=== PATIENT | male | born 1945 | race Caucasian/White ===

== ENCOUNTER → 2021-05-16 11:40 | Outpatient (BNVA) | payer MEDICARE, SELFPAY | PROVIDERS: Visit Provider Internal Medicine | DX: M48.061 Spinal stenosis, lumbar region without neurogenic claudication (principal); M54.16 Radiculopathy, lumbar region | CPT/HCPCS: 99202 ==

== ENCOUNTER 2021-05-29 12:25 | Emergency (ER) | payer OTHER, MEDICARE, SELFPAY ==
--- NOTE | ~2021-05-29 | XR_ITS ---
EXAMINATION: XR LUMBOSACRAL SPINE CLINICAL INFORMATION: Back pain COMPARISON: None TECHNIQUE: Three views of the lumbosacral spine. FINDINGS: Bone alignment is normal. No fracture or dislocation is seen. There is degenerative disc disease from L3-L4 to L5-S1. There is degenerative spondylosis. There are large bridging osteophytes at L1-L2 and L2-L3. There is lower lumbar spine facet arthritis. There is evidence of atherosclerotic disease. XR/XR lumbar spine 2-3V IMPRESSION: Severe degenerative changes. No fracture seen.
[2021-05-29 12:34] VITALS: BMI 38.7
[2021-05-29 12:36] VITALS: BP 150/72; PULSE 79; RESP 18; TEMP 36.8; O2SAT 95
--- NOTE | 2021-05-29 12:45 | ED.BACK ---
HPI - Back Pain/Injury General Chief Complaint: Back Pain/Injury Stated Complaint: lower back pain Time Seen by Provider: 05/29/21 12:43 Source: patient and EMS Mode of arrival: EMS Limitations: no limitations History of Present Illness HPI Narrative: 75-year-old male with history of 20+ years of chronic back pain. Patient is taking oxycodone at home p.r.n. if needed for pain, patient reported that oxycodone is not given enough relief pain, no recent fall, no recent new injury to the back, reportedly patient had multiple MRIs and studies on the lumbar spine, patient is scheduled to have epidural pain management in 2 weeks. Came in today for severe back pain that he could not tolerate and did not get relief with the oxycodone with it. Related Data Home Medications Medication Instructions Recorded Confirmed albuterol sulfate 2.5 mg INHALATION Q4H PRN 05/16/21 amlodipine 5 mg tablet 5 mg PO DAILY 05/16/21 apixaban 5 mg tablet (Eliquis) 5 mg PO BID 05/16/21 aspirin 81 mg tablet,delayed 81 mg PO DAILY 05/16/21 release (Adult Low Dose Aspirin) budesonide-formoterol HFA 160 2 puff INHALATION BID 05/16/21 mcg-4.5 mcg/actuation aerosol inhaler (Symbicort) docusate sodium 100 mg capsule 100 mg PO BID 05/16/21 duloxetine 30 mg capsule,delayed 30 mg PO DAILY 05/16/21 release ezetimibe 10 mg tablet 10 mg PO DAILY 05/16/21 furosemide 40 mg tablet 40 mg PO DAILY 05/16/21 guaifenesin 200 mg tablet 200 mg PO QID 05/16/21 lisinopril 20 mg tablet 20 mg PO DAILY 05/16/21 metoprolol tartrate 25 mg tablet 25 mg PO BID 05/16/21 oxycodone-acetaminophen 5 mg-325 1 tab PO TID PRN 05/16/21 mg tablet tiotropium bromide 2.5 2 puff INHALATION DAILY 05/16/21 mcg/actuation mist for inhalation (Spiriva Respimat) Allergies Allergy/AdvReac Type Severity Reaction Status Date / Time No Known Allergies Allergy Verified 05/16/21 12:01 Review of Systems Review of Systems: All other systems are reviewed and are negative Constitutional: Reports as per HPI and Reports no additional constitutional complaints Eyes: Reports as per HPI and Reports no additional eye complaints Reports system reviewed and no additional complaints, except as documented Cardiovascular: Reports as per HPI and Reports no additional cardiovascular complaints Respiratory: Reports as per HPI and Reports no additional respiratory complaints Gastrointestinal: Reports as per HPI and Reports no additional gastrointestinal complaints Genitourinary: Reports no additional female genitourinary complaints Musculoskeletal: Reports no additional musculoskeletal complaints Skin/Breast: Reports system reviewed and no additional complaints, except as docu Psychiatric: Reports no additional psychiatric complaints Endocrine: Reports no additional endocrine complaints Hematologic/Lymphatic: Reports no additional hematologic/lymphatic complaints Allergic/Immunologic: Reports no additional allergic/immunologic complaints Reports system reviewed and no additional complaints, except as documented and Reports Abnormal speech present [facility] Past Medical History Medical History CAD (coronary artery disease) Congestive heart failure COPD (chronic obstructive pulmonary disease) Depression Lumbar radicular pain Paroxysmal A-fib Spinal stenosis at L4-L5 level Social History Social History Alcohol intake: unknown Patient Tobacco Use Status: Tobacco use Unknown Use of substances other than those prescribed or required for medical reasons: Unknown Advance Directives: No Advance Directives Information Provided: No Physical Exam Vital Signs: Vital Signs: Last Vital Signs Temp 98.2 F 05/29/21 12:36 Pulse 79 05/29/21 12:36 Resp 18 05/29/21 12:36 BP 150/72 H 05/29/21 12:36 Pulse Ox 95 05/29/21 12:36 Body Mass Index 38.7 Vital signs have been reviewed as appeared to be correct. Blood pressure normal. Heart rate normal. Respiration rate normal. Temperature normal. Oxygen saturation normal. Appearance: Alert. Oriented X3. No acute distress. Head: Normal external exam. Normocephalic. Atraumatic. No Locke signs noted. No raccoon eyes noted Eyes: PERRLA. EOMI. Conjunctiva and sclera normal. Eyelids normal. ENT: TM's Normal. Pharynx normal. Uvula midline. Moist mucous membranes. No trismus noted. No drooling noted. No muffled voice noted. Neck: Normal inspection. Neck supple. FROM. No adenopathy. Thyroid Normal. No meningeal signs. No neck mass noted. CVS: Normal heart rate and rhythm. Heart sound normal. No murmurs noted. Pulses normal throughout. Respiratory: No respiratory distress. Painless inspiration. Breath sounds normal. No wheezes/rales/rhonchi noted. Chest nontender. No accessory muscle usage noted or decreased air movement noted. Abdomen: Soft and nontender. Bowel sounds normal in all 4 quadrants. No distention noted. No organomegaly noted. No visible injury noted. Back: No CVA tenderness. Full range of motion noted. No step-off, no deformity. Skin: Skin warm and dry. Normal skin color. Normal skin turgor. No rashes/lesions/lacerations noted. Extremities: No lower extremity edema. Extremities exhibit normal range of motion. Extremities nontender. Neuro: Oriented X 3. Cranial nerve exam: II-XII are grossly intact No motor deficit. No sensory deficit. Reflexes normal. Course Course Course Narrative: Assessment and plan. Acute on chronic low back pain of a 75-year-old male, patient use oxycodone at home for pain control, no new injuries, unremarkable number spine x-ray, patient received Dilaudid/Toradol IM improving patient's pain. And discussed with the patient to follow-up with pain management clinic. MDM - Back Pain/Injury Medical Records Attestation: I reviewed the patient's medical records. Imaging Data Lumbar spine x-ray: Radiologist's impression: Severe degenerative changes. No fracture seen. Discharge Plan Discharge Clinical Impression: Acute exacerbation of chronic low back pain Patient Disposition: Home, Self-Care Instructions: Chronic Pain (ED) Additional Instructions: Follow-up with your PCP/pain management clinic appointment as scheduled. Use pain medication home as instructed.
[2021-05-29] MEDS: HYDROmorphone HCl 2 MG/ML VIAL IM (12:58)
[2021-05-29] MEDS: Ketorolac Tromethamine 60 MG/2 ML VIAL IM (12:58)
== END 2021-05-29 15:02 | disposition home or self-care (01) ==
LOC: HO.ED 13:05
PROVIDERS: Emergency Provider Emergency Medicine
DX: G89.29 Other chronic pain (principal); M54.50 Low back pain, unspecified; I48.0 Paroxysmal atrial fibrillation; F17.200 Nicotine dependence, unspecified, uncomplicated; Z79.891 Long term (current) use of opiate analgesic
CPT/HCPCS: 72100; 96372; 99284; J1170; J1885

== ENCOUNTER 2021-06-15 06:33 | Outpatient (REF) | payer MEDICARE, SELFPAY ==
--- NOTE | ~2021-06-15 | FL_ITS ---
EXAMINATION: XR FLUOROSCOPY WITH IMAGES CLINICAL INFORMATION: Spinal stenosis COMPARISON: None. TECHNIQUE: Fluoroscopy performed by Dr. Mason Fluoroscopy time: 0.3 minutes DAP: 2.5 Gycm2 Images: 1 FINDINGS: Image demonstrates needle placement and contrast injection over the lower lumbar spine. FL/FL guidance in treatment room IMPRESSION: Fluoroscopy guidance for pain management procedure.
== END 2021-06-15 06:34 | disposition home or self-care (01) ==
LOC: HO.RADIR 06:33
PROVIDERS: Visit Provider Internal Medicine
DX: M48.061 Spinal stenosis, lumbar region without neurogenic claudication (principal); M54.16 Radiculopathy, lumbar region
CPT/HCPCS: 62323; J1040; Q9967

== ENCOUNTER → 2021-07-08 10:40 | Outpatient (BNVA) | payer MEDICARE, SELFPAY | PROVIDERS: PCP Internal Medicine; Visit Provider Internal Medicine | DX: Z13.89 Encounter for screening for other disorder (principal) | CPT/HCPCS: 99212 ==

== ENCOUNTER 2021-07-08 11:22 | Inpatient (IN) | payer OTHER, SELFPAY ==
[2021-07-08] VITALS (9 sets, daily range): BP systolic 136–153; BP diastolic 20–98; PULSE 81–98; RESP 18–23; TEMP 36.1–36.8; O2SAT 91–95; BMI 38.4
--- NOTE | ~2021-07-08 | XR_ITS ---
EXAMINATION: XR CHEST CLINICAL INFORMATION: Shortness of breath COMPARISON: None TECHNIQUE: AP portable view of the chest was obtained. FINDINGS: The cardiopericardial silhouette is enlarged. There appears to be some mild basilar atelectasis with no definite confluent pneumonitis identified. Prominent pericardial fat pads are seen. There is some vascular prominence present without definite interstitial or airspace edema. No pneumothorax or significant pleural effusion. XR/XR chest 1V IMPRESSION: Cardiomegaly without pulmonary edema. No significant acute parenchymal disease appreciated.
--- NOTE | 2021-07-08 12:28 | ECG_ITS ---
Test Reason : upper resp Blood Pressure : / mmHG Vent. Rate : 081 BPM Atrial Rate : 000 BPM P-R Int : 000 ms QRS Dur : 090 ms QT Int : 362 ms P-R-T Axes : 000 058 105 degrees QTc Int : 420 ms Atrial fibrillation Nonspecific ST and T wave abnormality Abnormal ECG No previous ECGs available Referred By: José Manuel Chi Electronically Signed By:Cortes Mejias
[2021-07-08] MEDS: Albuterol/Iprat 2.5/0.5MG 3 ML AMPUL.NEB INHALE ×3 (12:47→19:47)
--- NOTE | 2021-07-08 12:53 | ED_ITS ---
HPI - General Adult General Chief complaint: Upper Respiratory Symptoms Stated complaint: diff breathing Time Seen by Provider: 07/08/21 11:53 Source: patient and family History of Present Illness HPI narrative: This is a 75-year-old male with a history of COPD, as well as paroxysmal atrial fibrillation, congestive heart failure, who has had worsening shortness of breath over the last 4-5 days. The patient has noted lower extremity edema. He is on oxygen at home but feels that he cannot exert himself at all without getting very short of breath. He has had a cough productive of some beige phlegm. He denies any fever. He denies any chest pain. Was seen last week for back pain was put on prednisone for 5 days for his back which seemed to improve his breathing. He has not been on prednisone for COPD. He is on furosemide. He is anticoagulated Related Data Home Medications Medication Instructions Recorded Confirmed albuterol sulfate 2.5 mg INHALATION Q4H PRN 05/16/21 07/08/21 amlodipine 5 mg tablet 5 mg PO DAILY 05/16/21 07/08/21 apixaban 5 mg tablet (Eliquis) 5 mg PO BID 05/16/21 07/08/21 aspirin 81 mg tablet,delayed 81 mg PO DAILY 05/16/21 07/08/21 release (Adult Low Dose Aspirin) budesonide-formoterol HFA 160 2 puff INHALATION BID 05/16/21 07/08/21 mcg-4.5 mcg/actuation aerosol inhaler (Symbicort) docusate sodium 100 mg capsule 100 mg PO BID 05/16/21 07/08/21 duloxetine 30 mg capsule,delayed 30 mg PO DAILY 05/16/21 07/08/21 release ezetimibe 10 mg tablet 10 mg PO DAILY 05/16/21 07/08/21 guaifenesin 200 mg tablet 200 mg PO QID 05/16/21 07/08/21 lisinopril 20 mg tablet 20 mg PO DAILY 05/16/21 07/08/21 metoprolol tartrate 25 mg tablet 25 mg PO BID 05/16/21 07/08/21 oxycodone-acetaminophen 5 mg-325 1 tab PO TID PRN 05/16/21 07/08/21 mg tablet tiotropium bromide 2.5 2 puff INHALATION DAILY 05/16/21 07/08/21 mcg/actuation mist for inhalation (Spiriva Respimat) Allergies Allergy/AdvReac Type Severity Reaction Status Date / Time No Known Allergies Allergy Verified 07/08/21 10:53 Review of Systems Review of Systems: Yes all other systems are reviewed and are negative Constitutional: Constitutional: Reports as per HPI and Denies fever(s) Eyes: Eyes: Reports as per HPI and Reports no additional eye complaints ENT: Reports system reviewed and no additional complaints, except as documented, Reports as per HPI, Denies nasal congestion, Denies nasal discharge and Denies sore throat Cardiovascular: Cardiovascular: Reports as per HPI, Denies chest pain and Reports dyspnea Respiratory: Respiratory: Reports as per HPI, Reports cough and Reports dyspnea Gastrointestinal: Gastrointestinal: Reports as per HPI, Denies abdominal pain, Denies diarrhea and Denies vomiting Genitourinary: Genitourinary: Reports as per HPI, Denies hematuria, Denies dysuria and Denies urinary frequency Musculoskeletal: Musculoskeletal: Reports no additional musculoskeletal complaints and Denies numbness Integumentary/Breasts: Skin/Breast: Reports as per HPI and Denies rash Comments: Lower extremity swelling/edema Neurologic: Reports as per HPI, Denies focal weakness, Denies numbness and Denies Sensory deficit (Neuro) Psychiatric: Psychiatric: Reports no additional psychiatric complaints and Reports as per HPI Endocrine: Endocrine: Reports no additional endocrine complaints and Reports as per HPI Hematologic/Lymphatic: Hematologic/Lymphatic: Reports no additional hematologic/lymphatic complaints, Reports as per HPI and Reports other (No peripheral edema) [facility] Past Medical History Medical History CAD (coronary artery disease) Congestive heart failure COPD (chronic obstructive pulmonary disease) Depression Lumbar radicular pain Paroxysmal A-fib Spinal stenosis at L4-L5 level Social History Social History Alcohol intake: never Patient Tobacco Use Status: Current everyday Tobacco user Use of substances other than those prescribed or required for medical reasons: No Advance Directives: No Advance Directives Information Provided: Yes Physical Exam Vital Signs: Vital Signs: Last Vital Signs Temp 98.3 F 07/08/21 13:26 Pulse 90 07/08/21 13:26 Resp 23 H 07/08/21 13:26 BP 153/20 H 07/08/21 13:26 Pulse Ox 95 07/08/21 13:26 Oxygen Flow Rate 2 07/08/21 11:31 BMI result Body Mass Index 38.4 Const: General: cooperative, no acute distress and alert Orientation/consciousness: patient oriented x3 HENMT: Head: Yes normal to inspection Eyes: General: appearance normal, both eyes and all related structures Eyelids: Yes eyelids normal Conjunctivae: conjunctivae normal Pupils: Equal, round and reactive pupils present Neck: Neck: Yes normal visual inspection and Yes supple Chest: Chest palpation & inspection: normal inspection of the chest Resp: Effort & Inspection: normal respiratory effort Auscultation: clear to auscultation bilaterally Cardio: Rhythm: abnormal rhythm (Irregular irregular) Heart sounds: no gallops, no murmurs and no rubs GI: Other: Moderate obesity Palpation (GI): Soft to palpation, nontender and Other GI palpation findings present (Non-distended) Auscultation: normal bowel sounds Skin: General skin exam: no rashes or lesions noted Neuro: General: patient oriented x3, no focal motor deficits and CN's II-XI intact bilaterally Cranial nerves: Yes Equal, round and reactive pupils present Cognition (Neuro): normal cognition Motor exam (neuro): 5/5 motor strength present throughout Sensory Exam: No Sensory deficit (Neuro) Extrem: General: Yes normal to inspection, Yes no pedal edema and Yes edema (2+ pitting edema bilaterally to the ankles) Psych: Appearance: grossly normal Affect: normal affect Medical Decision Making MDM Narrative Medical decision making narrative: Patient with COPD, CHF, paroxysmal atrial fibrillation. Patient has had worsened shortness of breath, with minimal exertion. Patient sounded very wheezy, consider cardiac asthma, on initial evaluation. Patient did have 2+ pitting edema. Patient was given Lasix 80 mg IV, nitroglycerin paste. Patient is on oxygen at home 2 L nasal cannula but given his worsening dyspnea, I believe admission for diuresis as well as possible Cardiology, and pulmonary consultation is warranted. Critical care time for this life-threatening illness exclusive of all other billable procedures was approximately 35 minutes including initial evaluation of the patient, ordering tests, x-ray interpretation, EKG interpretation, medical consultation, documentation, reevaluation. Lab Data Result diagrams: 07/08/21 13:09 07/08/21 13:09 Labs: Lab Results 07/08/21 07/08/21 07/08/21 Range/Units 13:09 13:09 13:09 WBC 10.1 (4.8-10.8) X10*3/uL RBC 4.89 (4.60-5.80) X10*6/uL Hgb 15.0 (14.0-18.0) g/dl Hct 47.1 (42.0-52.0) % MCV 96.3 (80.0-98.0) fL MCH 30.7 (27.0-33.0) pg MCHC 31.8 (31.0-36.0) g/dl RDW 14.4 (11.0-16.0) % Plt Count 156 L (160-400) X10*3/uL MPV 9.7 (9.4-12.4) fL Immature Gran % (Auto) 0.9 H (0.0-0.4) % Neut % (Auto) 77.6 H (45-73) % Lymph % (Auto) 12.8 L (20-40) % Crawford % (Auto) 6.3 (2-11) % Eos % (Auto) 2.0 (0-4) % Baso % (Auto) 0.4 (0-2) % Lymph # (Auto) 1.3 (1.2-4.9) X10*3/uL Crawford # (Auto) 0.6 (0.1-1.2) X10*3/uL Eos # (Auto) 0.2 (0.0-0.4) X10*3/uL Baso # (Auto) 0.0 (0.0-0.2) X10*3/uL Abs Immat Gran (auto) 0.09 H (0.00-0.03) X10*3/uL Absolute Neuts (auto) 7.9 (2.0-8.3) x10*3/uL Absolute Nucleated RBC 0.000 (0.0-0.012) X10*3/uL Nucleated RBC % (auto) 0.0 (0.0-0.2) /100WBC Sodium 140 (135-145) mmol/L Potassium 4.8 (3.3-5.1) mmol/L Chloride 103 (96-108) mmol/L Carbon Dioxide 30 H (22-29) mmol/L Anion Gap 12 (12-20) BUN 20 H (9-16) mg/dL Creatinine 1.08 (0.5-1.4) mg/dL Estim Creat Clear Calc 73.7 Estimated GFR > 60 Random Glucose 153 H (60-115) mg/dL Calcium 9.1 (8.4-10.2) mg/dL Magnesium 2.2 (1.6-2.6) mg/dL Total Bilirubin 0.6 (0.0-1.0) mg/dL AST 40 H (5-37) U/L ALT 147 H (0-40) U/L Alkaline Phosphatase 119 H (39-117) U/L B-Natriuretic Peptide (<100) pg/mL Total Protein 5.9 L (6.5-8.0) g/dL Albumin 3.5 (3.5-5.0) g/dL 07/08/21 Range/Units 13:09 WBC (4.8-10.8) X10*3/uL RBC (4.60-5.80) X10*6/uL Hgb (14.0-18.0) g/dl Hct (42.0-52.0) % MCV (80.0-98.0) fL MCH (27.0-33.0) pg MCHC (31.0-36.0) g/dl RDW (11.0-16.0) % Plt Count (160-400) X10*3/uL MPV (9.4-12.4) fL Immature Gran % (Auto) (0.0-0.4) % Neut % (Auto) (45-73) % Lymph % (Auto) (20-40) % Crawford % (Auto) (2-11) % Eos % (Auto) (0-4) % Baso % (Auto) (0-2) % Lymph # (Auto) (1.2-4.9) X10*3/uL Crawford # (Auto) (0.1-1.2) X10*3/uL Eos # (Auto) (0.0-0.4) X10*3/uL Baso # (Auto) (0.0-0.2) X10*3/uL Abs Immat Gran (auto) (0.00-0.03) X10*3/uL Absolute Neuts (auto) (2.0-8.3) x10*3/uL Absolute Nucleated RBC (0.0-0.012) X10*3/uL Nucleated RBC % (auto) (0.0-0.2) /100WBC Sodium (135-145) mmol/L Potassium (3.3-5.1) mmol/L Chloride (96-108) mmol/L Carbon Dioxide (22-29) mmol/L Anion Gap (12-20) BUN (9-16) mg/dL Creatinine (0.5-1.4) mg/dL Estim Creat Clear Calc Estimated GFR Random Glucose (60-115) mg/dL Calcium (8.4-10.2) mg/dL Magnesium (1.6-2.6) mg/dL Total Bilirubin (0.0-1.0) mg/dL AST (5-37) U/L ALT (0-40) U/L Alkaline Phosphatase (39-117) U/L B-Natriuretic Peptide 533 H (<100) pg/mL Total Protein (6.5-8.0) g/dL Albumin (3.5-5.0) g/dL Imaging Data Chest x-ray: My impression: Cardiomegaly, mild vascular congestion Radiologist's impression: FINDINGS: The cardiopericardial silhouette is enlarged. There appears to be some mild basilar atelectasis with no definite confluent pneumonitis identified. Prominent pericardial fat pads are seen. There is some vascular prominence present without definite interstitial or airspace edema. No pneumothorax or significant pleural effusion. XR/XR chest 1V IMPRESSION: Cardiomegaly without pulmonary edema. ? No significant acute parenchymal disease appreciated. ECG Data Attestation: I personally reviewed and interpreted this ECG as follows: Interpretation: Atrial fibrillation with a ventricular response of 81. Normal R-wave progression. Prominent fib/flutter waves makes interpretation of ST segment somewhat difficult, but no obvious ST elevation or depression Discharge Plan Discharge Clinical Impression: CHF (congestive heart failure), COPD (chronic obstructive pulmonary disease), Atrial fibrillation Patient Disposition: Admitted As Inpatient Prescriptions: No Action Eliquis 5 mg tablet 5 mg PO BID RF: 0 amlodipine 5 mg tablet 5 mg PO DAILY RF: 0 docusate sodium 100 mg capsule 100 mg PO BID RF: 0 ezetimibe 10 mg tablet 10 mg PO DAILY RF: 0 aspirin [Adult Low Dose Aspirin] 81 mg tablet,delayed release (DR/EC) 81 mg PO DAILY RF: 0 lisinopril 20 mg tablet 20 mg PO DAILY RF: 0 metoprolol tartrate 25 mg tablet 25 mg PO BID RF: 0 guaifenesin 200 mg tablet 200 mg PO QID RF: 0 oxycodone-acetaminophen 5-325 mg tablet 1 tab PO TID PRN (Reason: Pain) RF: 0 Spiriva Respimat 2.5 mcg/actuation mist 2 puff inhalation DAILY RF: 0 budesonide-formoterol [Symbicort] 160-4.5 mcg/actuation HFA aerosol inhaler 2 puff inhalation BID RF: 0 albuterol sulfate 2.5 mg /3 mL (0.083 %) solution for nebulization 2.5 mg inhalation Q4H PRN (Reason: Wheezing) RF: 0 duloxetine 30 mg capsule,delayed release(DR/EC) 30 mg PO DAILY RF: 0
[2021-07-08] MEDS: Nitroglycerin 2 % Oint 1 GM Packet 1 INCH TRANSDERMA (13:31)
[2021-07-08] MEDS: Furosemide 100 MG/10 ML VIAL 80 MG IVPUSH (13:31)
[2021-07-08 13:49] LABS: MANUAL DIFF FLAG NO
[2021-07-08 13:50] LABS: Basophils Percent Auto 0.4 % (0-2); Eosinophils Absolute Auto 0.2 X10*3/uL (0.0-0.4); Hematocrit 47.1 % (42.0-52.0); Imm Gran Abs Auto 0.09 X10*3/uL (0.00-0.03); Imm Gran Pct Auto 0.9 % (0.0-0.4); Lymphocytes Absolute Auto 1.3 X10*3/uL (1.2-4.9); Lymphocytes Percent Auto 12.8 % (20-40); Mean Corpuscular HGB Conc 31.8 g/dl (31.0-36.0); Mean Corpuscular Hemoglobin 30.7 pg (27.0-33.0); Mean Corpuscular Volume 96.3 fL (80.0-98.0); Mean Platelet Volume 9.7 fL (9.4-12.4); Monocytes Absolute Auto 0.6 X10*3/uL (0.1-1.2); Monocytes Percent Auto 6.3 % (2-11); Neutrophils Absolute Auto 7.9 x10*3/uL (2.0-8.3); Neutrophils Percent Auto 77.6 % (45-73); Platelet Count 156 X10*3/uL (160-400); Red Blood Count 4.89 X10*6/uL (4.60-5.80); Red Cell Distribution Width 14.4 % (11.0-16.0); White Blood Count 10.1 X10*3/uL (4.8-10.8)
[2021-07-08 14:08] LABS: Magnesium 2.2 mg/dL (1.6-2.6)
[2021-07-08 14:09] LABS: Alanine Aminotransferase 147 U/L (0-40); Albumin Level 3.5 g/dL (3.5-5.0); Alkaline Phosphatase 119 U/L (39-117); Anion Gap 12 (12-20); Aspartate Amino Transferase 40 U/L (5-37); Bilirubin Total 0.6 mg/dL (0.0-1.0); Blood Urea Nitrogen 20 mg/dL (9-16); Calcium 9.1 mg/dL (8.4-10.2); Carbon Dioxide 30 mmol/L (22-29); Chloride 103 mmol/L (96-108); Creatinine Clr Calc Pharmacy 73.7; Estimated Glomerular Filt Rate > 60; Glucose Random 153 mg/dL (60-115); Potassium 4.8 mmol/L (3.3-5.1); Sodium 140 mmol/L (135-145); Total Protein 5.9 g/dL (6.5-8.0)
[2021-07-08 14:12] LABS: B Type Natriuretic Peptide 533 pg/mL (<100)
--- NOTE | 2021-07-08 14:41 | PHA.MEDREC ---
Pharmacy Consult ? Medication Reconciliation Pharmacy has completed the medication reconciliation.
--- NOTE | 2021-07-08 14:47 | PC.NURSE ---
pt voided n urinal 1200ml yellow urine.
[2021-07-08 15:48] LABS: COVID-19 Test Negative (Negative)
--- NOTE | 2021-07-08 15:56 | P.HPHOSP_ITS ---
History of Present Illness Date of Service: 07/08/21 Attending physician on admission: Jennifer Omer Chief Complaint: Shortness of breath 75-year-old gentleman past medical history significant for coronary artery disease status post stent placement 6 years ago at [facility], his tory of congestive heart failure, COPD on 2 L of home oxygen, history of paroxysmal atrial fibrillation on Eliquis presented to [facility] due to few days of worsening shortness of breath with dyspnea on exertion, orthopnea denies any chest pain complaining of frequent urination x1 week, admit compliance with home medications denies new medications, denies excessive fluid intake, patient was seen at [facility] 10 days ago due to chronic back pain and was referred to [facility], patient seen this a.m. by Dr. Gibson and received right-sided peripheral nerve stimulation, from there patient came to the emergency room due to worsening shortness of breath, in the emergency room a chest x-ray showed no infiltrate, no edema, BNP was 533 no prior labs available since patient cardiac and primary providers of from [place], patient was treated in the emergency room with DuoNeb, nitro paste, and IV Lasix, patient does not feel any relief in his symptoms therefore being admitted for continued treatment and evaluation of worsening shortness of breath. Review of Systems Review of Systems: General no headache, no dizziness no fever chills. CVS no chest pain, no palpitation. Respiratory cough productive of green phlegm, shortness of breath Gastrointestinal no nausea no vomiting, no abdominal pain urinary frequency, no burning Yes all other systems are reviewed and are negative [facility] Medical History CAD (coronary artery disease) Congestive heart failure COPD (chronic obstructive pulmonary disease) Depression Lumbar radicular pain Paroxysmal A-fib Spinal stenosis at L4-L5 level Pertinent family history: Mother has history of congestive heart failure. Social History Household Members: Spouse Housing: House Do you presently have visiting nurse or other home services: Yes (PT) Alcohol intake: never Patient Tobacco Use Status: Current everyday Tobacco user Tobacco use type: Cigarette Cigarettes Per Day: 20 Smoked in Last 30 Days: Yes Patient Interested in Nicotine Replacement: No Patient Given Instructions on How to Stop Smoking: Yes Date Education Initiated: 07/08/21 Second Hand Smoke Exposure: No Use of substances other than those prescribed or required for medical reasons: No Currently Displaying Signs/Symptoms of Drug Intoxication Withdrawal: No Have you been hit, kicked, punched, or otherwise hurt by someone within the past year? If so, by whom?: No Do you feel safe in your current relationship?: Yes Is there a partner from a previous relationship who is making you feel unsafe now?: No Are you made to feel afraid or neglected: No Advance Directives: Yes Advance Directives on File: Yes Advance Directives Date on File: 07/08/21 Do you have thoughts of harming others: None Do you have a plan to hurt others: No Plan Recently lost weight without trying: No Nutrition Risks: Difficulty swallowing service: Yes Current occupational status: retired [employer] Allergies Allergy/AdvReac Type Severity Reaction Status Date / Time No Known Allergies Allergy Verified 07/08/21 10:53 Active Medications: Current Medications Acetaminophen (Acetaminophen 325 Mg Tablet) 650 mg PO Q6H PRN PRN Reason: Pain, Mild (Pain Scale 1-3) Ondansetron HCl (Ondansetron Hcl 4 Mg/2 Ml Vial) 4 mg IVPUSH Q8H PRN PRN Reason: Nausea and Vomiting Pharmacy Consult (Consult Rx Perform Med Rec) 1 each MISCELLANE ONCE PRN PRN Reason: Consult order Sodium Chloride (0.9 % Sodium Chloride Flush 3 Ml Syringe) 3 ml IVFLUSH [facility] Medications Medication Instructions Recorded Confirmed Last Taken Type albuterol sulfate 2.5 mg INHALATION Q4H PRN 05/16/21 07/08/21 07/07/21 History amlodipine 5 mg tablet 5 mg PO DAILY 05/16/21 07/08/21 07/07/21 History apixaban 5 mg tablet (Eliquis) 5 mg PO BID 05/16/21 07/08/21 07/07/21 History aspirin 81 mg tablet,delayed 81 mg PO DAILY 05/16/21 07/08/21 07/07/21 History release (Adult Low Dose Aspirin) budesonide-formoterol HFA 160 2 puff INHALATION BID 05/16/21 07/08/21 07/07/21 History mcg-4.5 mcg/actuation aerosol inhaler (Symbicort) docusate sodium 100 mg capsule 100 mg PO BID 05/16/21 07/08/21 07/07/21 History duloxetine 30 mg capsule,delayed 30 mg PO DAILY 05/16/21 07/08/21 07/07/21 History release ezetimibe 10 mg tablet 10 mg PO DAILY 05/16/21 07/08/21 07/07/21 History guaifenesin 200 mg tablet 200 mg PO QID 05/16/21 07/08/21 07/07/21 History lisinopril 20 mg tablet 20 mg PO DAILY 05/16/21 07/08/21 07/07/21 History metoprolol tartrate 25 mg tablet 25 mg PO BID 05/16/21 07/08/21 07/07/21 History oxycodone-acetaminophen 5 mg-325 1 tab PO TID PRN 05/16/21 07/08/21 07/07/21 History mg tablet tiotropium bromide 2.5 2 puff INHALATION DAILY 05/16/21 07/08/21 07/07/21 History mcg/actuation mist for inhalation (Spiriva Respimat) Physical Exam Vital Signs and Narrative: Vital Signs: Last Vital Signs Temp 98.3 F 07/08/21 15:25 Pulse 81 07/08/21 15:25 Resp 22 H 07/08/21 15:25 BP 143/78 H 07/08/21 15:25 Pulse Ox 95 07/08/21 15:25 Oxygen Flow Rate 2 07/08/21 11:31 BMI result Body Mass Index 38.4 General awake alert x3, no acute distress. Neck supple, no JVD. CVS irregular rate rhythm, Respiratory lungs bilateral expiratory rhonchi, no use of accessory muscles , no crackles Gastrointestinal abdomen obese, nontender, bowel sounds audible, no guarding , no rigidity. Extremities bilateral pitting edema Neuro nonfocal Skin facial hyperemia Psych appropriate affect Results Labs CBC and Chem 7: 07/08/21 13:09 07/09/21 06:43 Labs: Laboratory Results - last 24 hr 07/08/21 07/08/21 07/08/21 13:09 13:09 13:09 MCV 96.3 MCH 30.7 MCHC 31.8 RDW 14.4 Plt Count 156 L MPV 9.7 Immature Gran % (Auto) 0.9 H Neut % (Auto) 77.6 H Lymph % (Auto) 12.8 L [place] % (Auto) 6.3 Eos % (Auto) 2.0 Baso % (Auto) 0.4 Lymph # (Auto) 1.3 [place] # (Auto) 0.6 Eos # (Auto) 0.2 Baso # (Auto) 0.0 Abs Immat Gran (auto) 0.09 H Absolute Neuts (auto) 7.9 Absolute Nucleated RBC 0.000 Nucleated RBC % (auto) 0.0 Anion Gap 12 Estim Creat Clear Calc 73.7 Estimated GFR > 60 Random Glucose 153 H Calcium 9.1 Magnesium 2.2 Total Bilirubin 0.6 AST 40 H ALT 147 H Alkaline Phosphatase 119 H B-Natriuretic Peptide Total Protein 5.9 L Albumin 3.5 COVID-19 (KEILY) COVID-19 Drive.SG 07/08/21 07/08/21 13:09 15:24 MCV MCH MCHC RDW Plt Count MPV Immature Gran % (Auto) Neut % (Auto) Lymph % (Auto) [place] % (Auto) Eos % (Auto) Baso % (Auto) Lymph # (Auto) [place] # (Auto) Eos # (Auto) Baso # (Auto) Abs Immat Gran (auto) Absolute Neuts (auto) Absolute Nucleated RBC Nucleated RBC % (auto) Anion Gap Estim Creat Clear Calc Estimated GFR Random Glucose Calcium Magnesium Total Bilirubin AST ALT Alkaline Phosphatase B-Natriuretic Peptide 533 H Total Protein Albumin COVID-19 (KEILY) Negative COVID-19 Clin Com See Note Imaging Radiologist's Impressions: Impressions Chest X-Ray 07/08/21 12:35 IMPRESSION: Cardiomegaly without pulmonary edema. No significant acute parenchymal disease appreciated. Assessment and Plan (1) CHF (congestive heart failure): Status: Acute (2) COPD (chronic obstructive pulmonary disease): Status: Acute (3) Atrial fibrillation: Status: Acute (4) Lumbar radicular pain: Status: Acute (5) Spinal stenosis at L4-L5 level: Status: Acute 75-year-old gentleman with past medical history significant for coronary artery disease status post stent placement, congestive heart failure, COPD on 2 L of oxygen actively smoking presented to [facility] with few days history of shortness of breath, orthopnea, productive cough, no fever no chills patient being admitted for further evaluation and treatment of worsening shortness of breath. Shortness of breath Likely related to acute COPD exacerbation, question mild component of CHF due to orthopnea Will treat patient with IV steroids, scheduled and as needed updraft, doxycycline for possible bronchitis Continue supportive care with cough medication, oxygen Follow clinical course closely. Chronic hypoxic respiratory failure Continue 2 L of oxygen and uptitrated if noted to have hypoxia. Mild acute CHF exacerbation unknown diastolic or systolic since no echo a vailable and patient is not aware Complaining of orthopnea otherwise chest x-ray showed no congestion, no JVD, elevated BNP likely component of COPD Given IV Lasix 80 mg in ER, follow BMP and BNP,Will obtain echocardiogram, hold further diuretics, follow clinical course Daily weight and I's and O's Obtain cardiology consultation History of coronary artery disease EKG showed no acute ischemia, no chest pain, troponin pending, continue aspirin, amlodipine and metoprolol Paroxysmal atrial fibrillation Stable ventricular rate continue metoprolol and Eliquis Chronic back pain due to lumbar radiculopathy status post peripheral nerve stimulation on right, continue oxycodone and Tylenol for pain control DVT prophylaxis on Eliquis Code status DNR DNI Quality Stroke Does the patient have a stroke diagnosis?: No VTE Prior VTE?: No VTE Risk Level:: Medical - moderate - high VTE Device Contraindication: Treatment Not Indicated VTE Drug Contraindication: N/A - Med Ordered
[2021-07-08 15:59] LABS: Troponin-I High Sensitivity 11.2 ng/L (<3.5-35.0)
[2021-07-08] MEDS: guaiFENesin DM 200/20/10 ML 10 ML SYRUP PO ×2 (18:27→21:08)
[2021-07-08] MEDS: methylPREDNISolone Sod Succ 40 MG/ML VIAL IV (18:28)
[2021-07-08] MEDS: Doxycycline Hyclate 100 MG in 0.9 % Sodium Chloride 250 ML 166.67 MG IV (18:28)
--- NOTE | 2021-07-08 18:45 | MHC.CM.PN ---
Addendum entered by Marion Alvarado 07/08/21 19:03: Referral placed with [facility] to follow pt. CM to follow for d/c needs. Original Note: CM met with admitted patient with bed assignment pending. A&Ox2. IMM reviewed and signed per protocol 07/08/21@6139. No HCP on file. HCP reviewed, completed and signed, copies given and uploaded into [employer] and [facility] [employer]. HCP/S.O. Fiorella Fowler ([phone]). Currently active with [facility] for Physical therapy. Pt uses a cane, walker and oxygen @2L. Pt is a , [place]. [facility] [place] [place] Fully vaccinated with Moderna. D/C plan is home with continued services. Family will provide transportation home.
[2021-07-08] MEDS: Docusate Sodium 100 MG CAPSULE PO (21:04)
[2021-07-08] MEDS: oxyCODONE HCl Immed Release 5 MG TABLET PO (21:04)
[2021-07-08] MEDS: Apixaban 5 MG TABLET PO (21:04)
[2021-07-08] MEDS: Metoprolol Tartrate 25 MG TABLET PO (21:05)
[2021-07-09] VITALS (11 sets, daily range): BP systolic 131–164; BP diastolic 66–95; PULSE 75–100; RESP 16–21; TEMP 36–36.7; O2SAT 90–95
[2021-07-09] MEDS: 0.9 % Sodium Chloride Flush 3 ML SYRINGE IVFLUSH ×3 (01:19→16:11)
[2021-07-09] MEDS: methylPREDNISolone Sod Succ 40 MG/ML VIAL IV ×2 (01:20→08:34)
[2021-07-09] MEDS: Doxycycline Hyclate 100 MG in 0.9 % Sodium Chloride 250 ML 166.67 MG IV (04:26)
[2021-07-09 06:12] LABS: B Type Natriuretic Peptide 681 pg/mL (<100)
[2021-07-09 06:18] LABS: Anion Gap 12 (12-20); Blood Urea Nitrogen 22 mg/dL (9-16); Calcium 9.7 mg/dL (8.4-10.2); Carbon Dioxide 34 mmol/L (22-29); Chloride 100 mmol/L (96-108); Estimated Glomerular Filt Rate 44; Sodium 140 mmol/L (135-145)
[2021-07-09 06:26] LABS: Glucose Random 383 mg/dL (60-115)
[2021-07-09 07:19] LABS: Anion Gap 14 (12-20); Blood Urea Nitrogen 22 mg/dL (9-16); Calcium 9.4 mg/dL (8.4-10.2); Carbon Dioxide 32 mmol/L (22-29); Chloride 101 mmol/L (96-108); Creatinine Clr Calc Pharmacy 56.4; Estimated Glomerular Filt Rate 49; Potassium 5.5 mmol/L (3.3-5.1); Sodium 141 mmol/L (135-145)
[2021-07-09] MEDS: Ezetimibe 10 MG TABLET PO (08:34)
[2021-07-09] MEDS: guaiFENesin DM 200/20/10 ML 10 ML SYRUP PO ×4 (08:34→20:35)
[2021-07-09] MEDS: Apixaban 5 MG TABLET PO ×2 (08:34→20:34)
[2021-07-09] MEDS: amLODIPine Besylate 5 MG TABLET PO (08:34)
[2021-07-09] MEDS: Metoprolol Tartrate 25 MG TABLET PO ×2 (08:35→20:35)
[2021-07-09] MEDS: DULoxetine HCl 30 MG CAPSULE.DR PO (08:35)
[2021-07-09] MEDS: Aspirin Enteric Coated 81 MG TABLET.DR PO (08:35)
[2021-07-09 08:43] LABS: Glucose Random 390 mg/dL (60-115)
[2021-07-09] MEDS: Insulin Lispro 100 UNIT/ML 3 ML VIAL SUBCUT ×3 (08:43→20:35)
[2021-07-09 08:44] LABS: Estimated Average Glucose 197 mg/dL; Hemoglobin A1c % 8.5 %
[2021-07-09] MEDS: Docusate Sodium 100 MG CAPSULE PO ×2 (08:46→20:34)
[2021-07-09] MEDS: Albuterol/Iprat 2.5/0.5MG 3 ML AMPUL.NEB INHALE ×4 (08:47→20:34)
--- NOTE | 2021-07-09 09:11 | P.CONCA_ITS ---
History of Present Illness History of Present Illness Date of Service: 07/09/21 Requesting physician: Jennifer Omer Chief complaint: SOB Narrative: 75-year-old gentleman presenting with shortness of breath. He has obesity and has been a smoker for 60 years. He also has atrial fibrillation and has been on Eliquis. He is saying his chronic shortness of breath ongoing for a couple of years but progressively worsened in the last few days he was more short of breath. These symptoms presented to [facility]. He was noted to be in COPD exacerbation. Also his BNP was elevated and chest x-ray showed cardiomegaly without any signs of heart failure. It appears he was given Lasix in the ER and then his creatinine went up. At the time of interview he was sleeping completed flat in bed. Is denying any orthopnea PND. He is wheezing. [facility] Past Medical History Medical History CAD (coronary artery disease) Congestive heart failure COPD (chronic obstructive pulmonary disease) Depression Lumbar radicular pain Paroxysmal A-fib Spinal stenosis at L4-L5 level Social History Social History Household Members: Spouse Housing: House Do you presently have visiting nurse or other home services: Yes (PT) Alcohol intake: never Patient Tobacco Use Status: Current everyday Tobacco user Tobacco use type: Cigarette Cigarettes Per Day: 20 Smoked in Last 30 Days: Yes Patient Interested in Nicotine Replacement: No Patient Given Instructions on How to Stop Smoking: Yes Date Education Initiated: 07/08/21 Second Hand Smoke Exposure: No Use of substances other than those prescribed or required for medical reasons: No Have you been hit, kicked, punched, or otherwise hurt by someone within the past year? If so, by whom?: No Do you feel safe in your current relationship?: Yes Is there a partner from a previous relationship who is making you feel unsafe now?: No Are you made to feel afraid or neglected: No Advance Directives: Yes Advance Directives on File: Yes Advance Directives Date on File: 07/08/21 Do you have thoughts of harming others: None Do you have a plan to hurt others: No Plan Recently lost weight without trying: No Nutrition Risks: Difficulty swallowing service: Yes Current occupational status: retired Meds Allergies Allergy/AdvReac Type Severity Reaction Status Date / Time No Known Allergies Allergy Verified 07/08/21 10:53 Active Medications: Current Medications Acetaminophen (Acetaminophen 325 Mg Tablet) 650 mg PO Q6H PRN PRN Reason: Pain, Mild (Pain Scale 1-3) Albuterol Sulfate (Albuterol Sulfate (0.083%) 2.5 Mg/3 Ml Vial.Neb) 2.5 mg INHALE Q4H PRN PRN Reason: Wheezing Albuterol/Ipratropium (Albuterol/Iprat 2.5/0.5mg 3 Ml Ampul.Neb) 3 ml INHALE RQ4H WHILE AWAKE [facility] Last Admin: 07/09/21 08:47 Dose: 3 ml Documented by: Amlodipine Besylate (Amlodipine Besylate 5 Mg Tablet) 5 mg PO DAILY [facility]; Protocol Last Admin: 07/09/21 08:34 Dose: 5 mg Documented by: Apixaban (Apixaban 5 Mg Tablet) 5 mg PO BID [facility] Last Admin: 07/09/21 08:34 Dose: 5 mg Documented by: Aspirin (Aspirin Enteric Coated 81 Mg Tablet.) 81 mg PO DAILY [facility] Last Admin: 07/09/21 08:35 Dose: 81 mg Documented by: Dextrose (Dextrose 50 % 25 Gm/50 Ml Vial) 25 gm IVPUSH Q15M PRN; Protocol PRN Reason: per Hypoglycemia Standing Ord. Docusate Sodium (Docusate Sodium 100 Mg Capsule) 100 mg PO BID [facility] Last Admin: 07/09/21 08:46 Dose: 100 mg Documented by: Duloxetine HCl (Duloxetine Hcl 30 Mg Capsule.) 30 mg PO DAILY [facility] Last Admin: 07/09/21 08:35 Dose: 30 mg Documented by: Ezetimibe (Ezetimibe 10 Mg Tablet) 10 mg PO DAILY [facility] Last Admin: 07/09/21 08:34 Dose: 10 mg Documented by: Glucose (Glucose Gel 15 Gm Gel..Gram.) 15 gm PO Q15M PRN; Protocol PRN Reason: per Hypoglycemia Standing Ord. Guaifenesin/Dextromethorphan (Guaifenesin Dm 200/20/10 Ml 10 Ml Syrup) 10 ml PO QID [facility] Last Admin: 07/09/21 08:34 Dose: 10 ml Documented by: Doxycycline Hyclate 100 mg/ (Sodium Chloride) 250 mls @ 166.67 mls/hr IV Q12H [facility] Last Infusion: 07/09/21 06:02 Dose: Infused Documented by: Insulin Human Lispro (Insulin Lispro 100 Unit/Ml 3 Ml Vial) 0 unit SUBCUT QIDACHS [facility]; Protocol Last Admin: 07/09/21 08:43 Dose: 10 unit Documented by: Methylprednisolone Sodium Succinate (Methylprednisolone Sod Succ 40 Mg/Ml Vial) 40 mg IV Q8H [facility] Last Admin: 07/09/21 08:34 Dose: 40 mg Documented by: Metoprolol Tartrate (Metoprolol Tartrate 25 Mg Tablet) 25 mg PO BID [facility]; Protocol Last Admin: 07/09/21 08:35 Dose: 25 mg Documented by: Ondansetron HCl (Ondansetron Hcl 4 Mg/2 Ml Vial) 4 mg IVPUSH Q8H PRN PRN Reason: Nausea and Vomiting Pharmacy Consult (Consult Rx Perform Med Rec) 1 each MISCELLANE ONCE PRN PRN Reason: Consult order Sodium Chloride (0.9 % Sodium Chloride Flush 3 Ml Syringe) 3 ml IVFLUSH QSHIFT [facility] Last Admin: 07/09/21 01:19 Dose: 3 ml Documented by: Home Medications Medication Instructions Recorded Confirmed Last Taken Type albuterol sulfate 2.5 mg INHALATION Q4H PRN 05/16/21 07/08/21 07/07/21 History amlodipine 5 mg tablet 5 mg PO DAILY 05/16/21 07/08/21 07/07/21 History apixaban 5 mg tablet (Eliquis) 5 mg PO BID 05/16/21 07/08/21 07/07/21 History aspirin 81 mg tablet,delayed 81 mg PO DAILY 05/16/21 07/08/21 07/07/21 History release (Adult Low Dose Aspirin) budesonide-formoterol HFA 160 2 puff INHALATION BID 05/16/21 07/08/21 07/07/21 History mcg-4.5 mcg/actuation aerosol inhaler (Symbicort) docusate sodium 100 mg capsule 100 mg PO BID 05/16/21 07/08/21 07/07/21 History duloxetine 30 mg capsule,delayed 30 mg PO DAILY 05/16/21 07/08/21 07/07/21 History release ezetimibe 10 mg tablet 10 mg PO DAILY 05/16/21 07/08/21 07/07/21 History guaifenesin 200 mg tablet 200 mg PO QID 05/16/21 07/08/21 07/07/21 History lisinopril 20 mg tablet 20 mg PO DAILY 05/16/21 07/08/21 07/07/21 History metoprolol tartrate 25 mg tablet 25 mg PO BID 05/16/21 07/08/21 07/07/21 History oxycodone-acetaminophen 5 mg-325 1 tab PO TID PRN 05/16/21 07/08/21 07/07/21 History mg tablet tiotropium bromide 2.5 2 puff INHALATION DAILY 05/16/21 07/08/21 07/07/21 Hist ory mcg/actuation mist for inhalation (Spiriva Respimat) Physical Exam Vital Signs: Vital Signs: Last Vital Signs Temp 96.9 F 07/09/21 07:25 Pulse 87 07/09/21 08:51 Resp 20 07/09/21 08:51 BP 153/94 H 07/09/21 07:25 Pulse Ox 94 07/09/21 07:25 Oxygen Flow Rate 2 07/08/21 11:31 BMI result Body Mass Index 38.4 GENERAL APPEARANCE: in no acute distress, obese. NECK: no carotid bruit, no jugular venous distention. SKIN: no suspicious lesions, warm and dry. HEART: no murmurs, regular rate and rhythm. LUNGS: Bilateral expiratory wheezes ABDOMEN: soft, nontender. EXTREMITIES: Mild edema. PERIPHERAL PULSES: equal. NEUROLOGIC: No gross deficits, AAO X 3 Objective Labs and Meds Result diagrams: 07/08/21 13:09 07/09/21 06:43 Lab results: Laboratory Results - last 24 hr 07/08/21 07/08/21 07/08/21 13:09 13:09 13:09 WBC 10.1 RBC 4.89 Hgb 15.0 Hct 47.1 MCV 96.3 MCH 30.7 MCHC 31.8 RDW 14.4 Plt Count 156 L MPV 9.7 Immature Gran % (Auto) 0.9 H Neut % (Auto) 77.6 H Lymph % (Auto) 12.8 L [place] % (Auto) 6.3 Eos % (Auto) 2.0 Baso % (Auto) 0.4 Lymph # (Auto) 1.3 [place] # (Auto) 0.6 Eos # (Auto) 0.2 Baso # (Auto) 0.0 Abs Immat Gran (auto) 0.09 H Absolute Neuts (auto) 7.9 Absolute Nucleated RBC 0.000 Nucleated RBC % (auto) 0.0 Sodium 140 Potassium 4.8 Chloride 103 Carbon Dioxide 30 H Anion Gap 12 BUN 20 H Creatinine 1.08 Estim Creat Clear Calc 73.7 Estimated GFR > 60 Random Glucose 153 H Estimat Average Glucose Hgb A1c Fingerstick Hemoglobin A1c % Calcium 9.1 Magnesium 2.2 Total Bilirubin 0.6 AST 40 H ALT 147 H Alkaline Phosphatase 119 H Troponin I High Sens B-Natriuretic Peptide Total Protein 5.9 L Albumin 3.5 COVID-19 (KEILY) COVID-19 [place] 07/08/21 07/08/21 07/08/21 13:09 13:09 13:09 WBC RBC Hgb Hct MCV MCH MCHC RDW Plt Count MPV Immature Gran % (Auto) Neut % (Auto) Lymph % (Auto) [place] % (Auto) Eos % (Auto) Baso % (Auto) Lymph # (Auto) [place] # (Auto) Eos # (Auto) Baso # (Auto) Abs Immat Gran (auto) Absolute Neuts (auto) Absolute Nucleated RBC Nucleated RBC % (auto) Sodium Potassium Chloride Carbon Dioxide Anion Gap BUN Creatinine Estim Creat Clear Calc Estimated GFR Random Glucose Estimat Average Glucose 197 Hgb A1c Fingerstick Cancelled Hemoglobin A1c % 8.5 Calcium Magnesium Total Bilirubin AST ALT Alkaline Phosphatase Troponin I High Sens B-Natriuretic Peptide 533 H Total Protein Albumin COVID-19 (KEILY) COVID-19 Clin Com 07/08/21 07/08/21 07/09/21 15:24 15:33 05:35 WBC RBC Hgb Hct MCV MCH MCHC RDW Plt Count MPV Immature Gran % (Auto) Neut % (Auto) Lymph % (Auto) [place] % (Auto) Eos % (Auto) Baso % (Auto) Lymph # (Auto) [place] # (Auto) Eos # (Auto) Baso # (Auto) Abs Immat Gran (auto) Absolute Neuts (auto) Absolute Nucleated RBC Nucleated RBC % (auto) Sodium 140 Potassium 6.0 H* D Chloride 100 Carbon Dioxide 34 H Anion Gap 12 BUN 22 H Creatinine 1.53 H Estim Creat Clear Calc 52.0 Estimated GFR 44 Random Glucose 383 H* Estimat Average Glucose Hgb A1c Fingerstick Hemoglobin A1c % Calcium 9.7 D Magnesium Total Bilirubin AST ALT Alkaline Phosphatase Troponin I High Sens 11.2 B-Natriuretic Peptide Total Protein Albumin COVID-19 (KEILY) Negative COVID-19 Clin Com See Note 07/09/21 07/09/21 05:35 06:43 WBC RBC Hgb Hct MCV MCH MCHC RDW Plt Count MPV Immature Gran % (Auto) Neut % (Auto) Lymph % (Auto) [place] % (Auto) Eos % (Auto) Baso % (Auto) Lymph # (Auto) [place] # (Auto) Eos # (Auto) Baso # (Auto) Abs Immat Gran (auto) Absolute Neuts (auto) Absolute Nucleated RBC Nucleated RBC % (auto) Sodium 141 Potassium 5.5 H Chloride 101 Carbon Dioxide 32 H Anion Gap 14 BUN 22 H Creatinine 1.41 H Estim Creat Clear Calc 56.4 Estimated GFR 49 Random Glucose 390 H* Estimat Average Glucose Hgb A1c Fingerstick Hemoglobin A1c % Calcium 9.4 Magnesium Total Bilirubin AST ALT Alkaline Phosphatase Troponin I High Sens B-Natriuretic Peptide 681 H Total Protein Albumin COVID-19 (KEILY) COVID-19 Clin Com Imaging Radiologist's impression: Impressions Chest X-Ray 07/08/21 12:35 IMPRESSION: Cardiomegaly without pulmonary edema. No significant acute parenchymal disease appreciated. Assessment and Plan (1) Atrial fibrillation: Status: Acute (2) COPD (chronic obstructive pulmonary disease): Status: Acute (3) CHF (congestive heart failure): Status: Acute [age] gentleman background of COPD and AFib who is presenting shortness of breath. He has wheezing on examination. Chest x-ray did not show any congestion but did show cardiomegaly. I think he needs an echocardiogram. He was given Lasix but it appears his creatinine got worse. Examination is challenging with his body habitus. No obvious JVD. Laying flat in bed without symptoms. Wheezing on exam. I think likely COPD exacerbation is the major factor. Hold diuretics for now. Blood pressure is high and amlodipine can be t itrated. Thank you for allowing me to participate in the care of your patient. Please feel free to contact me if you have any questions. Procedures Date of Service Date of Service: 07/09/21
--- NOTE | 2021-07-09 10:00 | CA_ITS ---
Transthoracic Echocardiogram Patient (Last, First, Middle): Mio Sun, Gender: Male Date of : 1945 Age: 75 Procedure Date: 07/09/2021 Procedure Type: Transthoracic Echocardiogram Location: S3E Height: 175.26 cm Weight: 117.94 kg BSA: 2.31 m2 Heart Rate: bpm BP: 141 / 80 mmHg Byproducts Pump Operator: Referring MD: Jennifer Omer MD Symptoms: sob hx of chf Study Quality: Fair ECG Rhythm: Atrial Fibrillation Conclusions: - Normal left ventricular size and systolic function. - The basal inferior segment is akinetic. - Diastolic function is indeterminate on the basis of available data. - Mildly increased right ventricular cavity size. There is normal right ventricular systolic function. - The left atrium is severely dilated. - There is mild to moderate aortic valve stenosis. - Moderately elevated right atrial pressure. Mild pulmonary hypertension is present. - There is mild dilatation of the ascending aorta. Findings Left Ventricle Normal left ventricular size and systolic function. There is mildly increased left ventricular wall thickness. The visually estimated ejection fraction is between 55-60%. There is evidence of regional wall motion abnormalities. Diastolic function is indeterminate on the basis of available data. Wall Motion Rest Echo Findings The basal inferior segment is akinetic. Right Ventricle Mildly increased right ventricular cavity size. There is normal right ventricular systolic function. Atria The left atrium is severely dilated. Aortic Valve There is mild calcification of the aortic valve. There is mild thickening of the aortic valve. There is mild to moderate aortic valve stenosis. The peak aortic velocity is 2.65 m/s. The aortic valve area is 1.23 cm2. There is no aortic valve regurgitation. Mitral Valve Normal mitral valve structure and function. There is no mitral valve regurgitation. There is no mitral valve stenosis. Pulmonic Valve The pulmonic valve is likely normal. Tricuspid Valve Normal tricuspid valve structure and function. There is trace tricuspid valve regurgitation. Moderately elevated right atrial pressure. Mild pulmonary hypertension is present. Great Vessels There is mild dilatation of the ascending aorta. The visualized portions of the pulmonary artery and branches are normal. Venous The inferior vena cava is dilated and collapses greater than 50% with inspiration. Pericardium/Pleural There is no evidence of pericardial effusion. Prior Study Comparison No prior study available for comparison. Measurements 2D Linear Measurements IVSd: 1.15 0.6-0.9/0.6-1.0 cm LVIDd: 5.05 3.9-5.3/4.2-5.9 cm LVIDd Index: 2.19 2.4-3.2/2.2-3.1 cm/m2 LVIDs: 3.42 2.0-3.6 cm LVPWd: 1.16 0.7-1.1 cm Ao Root: 3.80 2.1-3.5 cm LA Diam: 4.70 2.7-3.8/3.0-4.0 cm LAIDs Index: 2.03 1.5-2.3 cm/m2 LV Mass: 280.70 67-162/88-224 g LV Mass Index: 121.51 43-95/49-115 g/m2 LVOT Diam: 2.40 3.0+(-)1.3 cm Mitral Valve MV Pk E: 1.04 MV Decel Time: 166.00 E'Lateral: 11.60 E'Medial: 9.57 E/E' Med: 10.90 E/E' Lat: 9.00 PHT: 49.00 MVA PHT: 4.49 Decel [place]: 6.28 Aortic Valve AoV Pk Eh: 2.65 AoV Mn Eh: 1.88 AoV VTI: 0.52 AoV Pk Grad: 28.00 Aov Mn Grad: 17.00 [place] Cont.VTI: 1.23 LVOT LVOT Pk Eh: 0.81 LVOT Mn Eh: 0.49 LVOT VTI: 0.14 LVOT Pk Grad: 3.00 LVOT Mn Grad: 1.00 LVOT Diam: 2.40 LVOT Area: 4.52 Diastolic Function MV Pk E: 1.04 E'Medial: 9.57 E/E' Med: 10.90 E' Laterial: 11.60 E/E' Lat: 9.00 Right Ventricle TAPSE (mm): 25.00 TVS' Eh: 15.00 Tricuspid Valve TR Pk Eh: 2.83 TR Pk Grad: 32.00 RVSP: 40.00 Great Vessels Aorta Ao Root-2D: 3.80 2.0-3.7 cm Ao Asc: 3.90 2.1-3.4 cm Pulmonary Valve PV Pk Eh: 1.11 Peak PV Grad: 5.00 Updated in Other Vendor System with Status of Final Cortes Mejias MD electronically signed on 07/10/2021 10:38:05 AM with status of Final
--- NOTE | 2021-07-09 12:40 | HO.PM.IMPN ---
Subjective Subjective Date of Service: 07/09/21 Interval History: Feeling better this morning, less shortness of breath and cough, noted to have elevated blood sugars 399 with hyperkalemia this morning, patient denies history of diabetes, denies chest pain, no headache no dizziness, complaining of back pain. Review of Systems General no headache, no dizziness no fever chills. CVS no chest pain, no palpitation. Respiratory less productive cough, less shortness of breath Gastrointestinal no nausea no vomiting, no abdominal pain Review of Systems: Yes all other systems are reviewed and are negative Physical Exam Vital Signs: Vital Signs: Last Vital Signs Temp 97.0 F 07/09/21 12:00 Pulse 100 07/09/21 12:00 Resp 19 07/09/21 12:00 BP 141/80 H 07/09/21 12:00 Pulse Ox 95 07/09/21 12:00 Oxygen Flow Rate 2 07/08/21 11:31 BMI result Body Mass Index 38.4 General awake alert x3, no acute distress. Neck no JVD. CVS irregular rate rhythm, Respiratory lungs sounds better with less bilateral rhonchi, no crackles, no use of accessory muscles Gastrointestinal abdomen soft, obese, nontender, bowel sounds audible, Extremities bilateral pitting edema. Neuro nonfocal Skin no rash Psych appropriate affect Objective Data Active Medications Acetaminophen (Acetaminophen 325 Mg Tablet) 650 mg PO Q6H PRN PRN Reason: Pain, Mild (Pain Scale 1-3) Albuterol Sulfate (Albuterol Sulfate (0.083%) 2.5 Mg/3 Ml Vial.Neb) 2.5 mg INHALE Q4H PRN PRN Reason: Wheezing Albuterol/Ipratropium (Albuterol/Iprat 2.5/0.5mg 3 Ml Ampul.Neb) 3 ml INHALE RQ4H WHILE AWAKE [facility] Last Admin: 07/09/21 11:56 Dose: 3 ml Documented by: PAUL Amlodipine Besylate (Amlodipine Besylate 5 Mg Tablet) 5 mg PO DAILY [facility]; Protocol Last Admin: 07/09/21 08:34 Dose: 5 mg Documented by: SARAH Apixaban (Apixaban 5 Mg Tablet) 5 mg PO BID [facility] Last Admin: 07/09/21 08:34 Dose: 5 mg Documented by: SARAH Aspirin (Aspirin Enteric Coated 81 Mg Tablet.) 81 mg PO DAILY [facility] Last Admin: 07/09/21 08:35 Dose: 81 mg Documented by: SARAH Dextrose (Dextrose 50 % 25 Gm/50 Ml Vial) 25 gm IVPUSH Q15M PRN; Protocol PRN Reason: per Hypoglycemia Standing Ord. Docusate Sodium (Docusate Sodium 100 Mg Capsule) 100 mg PO BID [facility] Last Admin: 07/09/21 08:46 Dose: 100 mg Documented by: SARAH Duloxetine HCl (Duloxetine Hcl 30 Mg Capsule.) 30 mg PO DAILY [facility] Last Admin: 07/09/21 08:35 Dose: 30 mg Documented by: SARAH Ezetimibe (Ezetimibe 10 Mg Tablet) 10 mg PO DAILY [facility] Last Admin: 07/09/21 08:34 Dose: 10 mg Documented by: SARAH Glipizide (Glipizide Xl 2.5 Mg Tab.Er.24) 2.5 mg PO DAILY [facility] Glucose (Glucose Gel 15 Gm Gel..Gram.) 15 gm PO Q15M PRN; Protocol PRN Reason: per Hypoglycemia Standing Ord. Guaifenesin/Dextromethorphan (Guaifenesin Dm 200/20/10 Ml 10 Ml Syrup) 10 ml PO QID [facility] Last Admin: 07/09/21 08:34 Dose: 10 ml Documented by: SARAH Doxycycline Hyclate 100 mg/ (Sodium Chloride) 250 mls @ 166.67 mls/hr IV Q12H [facility] Last Infusion: 07/09/21 06:02 Dose: 0 mls/hr Documented by: TRACY Insulin Human Lispro (Insulin Lispro 100 Unit/Ml 3 Ml Vial) 0 unit SUBCUT QIDACHS [facility]; Protocol Last Admin: 07/09/21 08:43 Dose: 10 unit Documented by: SARAH Metoprolol Tartrate (Metoprolol Tartrate 25 Mg Tablet) 25 mg PO BID [facility]; Protocol Last Admin: 07/09/21 08:35 Dose: 25 mg Documented by: SARAH Ondansetron HCl (Ondansetron Hcl 4 Mg/2 Ml Vial) 4 mg IVPUSH Q8H PRN PRN Reason: Nausea and Vomiting Pharmacy Consult (Consult Rx Perform Med Rec) 1 each MISCELLANE ONCE PRN PRN Reason: Consult order Prednisone (Prednisone 20 Mg Tablet) 20 mg PO DAILY [facility] Sodium Chloride (0.9 % Sodium Chloride Flush 3 Ml Syringe) 3 ml IVFLUSH QSHIFT ATILIO Last Admin: 07/09/21 09:16 Dose: 3 ml Documented by: SARAH Labs CBC & Chem 7: 07/08/21 13:09 07/09/21 06:43 Labs: Laboratory Results - last 24 hr 07/08/21 07/08/21 07/08/21 13:09 13:09 13:09 MCV 96.3 MCH 30.7 MCHC 31.8 RDW 14.4 Plt Count 156 L MPV 9.7 Immature Gran % (Auto) 0.9 H Neut % (Auto) 77.6 H Lymph % (Auto) 12.8 L [place] % (Auto) 6.3 Eos % (Auto) 2.0 Baso % (Auto) 0.4 Lymph # (Auto) 1.3 [place] # (Auto) 0.6 Eos # (Auto) 0.2 Baso # (Auto) 0.0 Abs Immat Gran (auto) 0.09 H Absolute Neuts (auto) 7.9 Absolute Nucleated RBC 0.000 Nucleated RBC % (auto) 0.0 Anion Gap 12 Estim Creat Clear Calc 73.7 Estimated GFR > 60 Random Glucose 153 H Estimat Average Glucose Hgb A1c Fingerstick Hemoglobin A1c % Calcium 9.1 Magnesium 2.2 Total Bilirubin 0.6 AST 40 H ALT 147 H Alkaline Phosphatase 119 H Troponin I High Sens B-Natriuretic Peptide Total Protein 5.9 L Albumin 3.5 COVID-19 (KEILY) COVID-19 Clin Com 07/08/21 07/08/21 07/08/21 13:09 13:09 13:09 MCV MCH MCHC RDW Plt Count MPV Immature Gran % (Auto) Neut % (Auto) Lymph % (Auto) [place] % (Auto) Eos % (Auto) Baso % (Auto) Lymph # (Auto) [place] # (Auto) Eos # (Auto) Baso # (Auto) Abs Immat Gran (auto) Absolute Neuts (auto) Absolute Nucleated RBC Nucleated RBC % (auto) Anion Gap Estim Creat Clear Calc Estimated GFR Random Glucose Estimat Average Glucose 197 Hgb A1c Fingerstick Cancelled Hemoglobin A1c % 8.5 Calcium Magnesium Total Bilirubin AST ALT Alkaline Phosphatase Troponin I High Sens B-Natriuretic Peptide 533 H Total Protein Albumin COVID-19 (KEILY) COVID-19 Clin Com 07/08/21 07/08/21 07/09/21 15:24 15:33 05:35 MCV MCH MCHC RDW Plt Count MPV Immature Gran % (Auto) Neut % (Auto) Lymph % (Auto) [place] % (Auto) Eos % (Auto) Baso % (Auto) Lymph # (Auto) [place] # (Auto) Eos # (Auto) Baso # (Auto) Abs Immat Gran (auto) Absolute Neuts (auto) Absolute Nucleated RBC Nucleated RBC % (auto) Anion Gap 12 Estim Creat Clear Calc 52.0 Estimated GFR 44 Random Glucose 383 H* Estimat Average Glucose Hgb A1c Fingerstick Hemoglobin A1c % Calcium 9.7 D Magnesium Total Bilirubin AST ALT Alkaline Phosphatase Troponin I High Sens 11.2 B-Natriuretic Peptide Total Protein Albumin COVID-19 (KEILY) Negative COVID-19 Clin [facility] See Note 07/09/21 07/09/21 05:35 06:43 MCV MCH MCHC RDW Plt Count MPV Immature Gran % (Auto) Neut % (Auto) Lymph % (Auto) [place] % (Auto) Eos % (Auto) Baso % (Auto) Lymph # (Auto) [place] # (Auto) Eos # (Auto) Baso # (Auto) Abs Immat Gran (auto) Absolute Neuts (auto) Absolute Nucleated RBC Nucleated RBC % (auto) Anion Gap 14 Estim Creat Clear Calc 56.4 Estimated GFR 49 Random Glucose 390 H* Estimat Average Glucose Hgb A1c Fingerstick Hemoglobin A1c % Calcium 9.4 Magnesium Total Bilirubin AST ALT Alkaline Phosphatase Troponin I High Sens B-Natriuretic Peptide 681 H Total Protein Albumin COVID-19 (KEILY) COVID-19 Clin Com Assessment and Plan (1) COPD (chronic obstructive pulmonary disease): Status: Acute (2) CHF (congestive heart failure): Status: Acute (3) Atrial fibrillation: Status: Acute (4) Lumbar radicular pain: Status: Acute Assessment and Plan: 75-year-old gentleman with past medical history significant for coronary artery disease status post stent placement, congestive heart failure, COPD on 2 L of oxygen actively smoking presented to [facility] with few days history of shortness of breath, orthopnea, productive cough, no fever no chills patient being admitted for further evaluation and treatment of worsening shortness of breath. Shortness of breath Improving likely related to acute COPD exacerbation, with mild component of CHF due to orthopnea Wean steroids, continue scheduled and as needed updraft, doxycycline for possible bronchitis Continue supportive care with cough medication Follow clinical course closely. Chronic hypoxic respiratory failure Stable down titrate to 2 L of oxygen Mild acute CHF exacerbation unknown diastolic or systolic since no echo available and patient is not aware No symptoms of chest pain, orthopnea resolved,no JVD, elevated BNP likely component of COPD Given IV Lasix 80 mg in ER, noted to have bump in creatinine to 1.53 obtain echocardiogram, hold further diuretics, follow clinical course Case discussed with Dr. Mejias he agrees that it is difficult to clinically asses patient due to body habitus will follow echo and clinical course Hyperkalemia Likely due to elevated blood sugars/lisinopril Treated with insulin, DC lisinopril follow labs Hyperglycemia No history of diabetes mellitus noted to have elevated blood sugars obtain hemoglobin A1c 8.5, average blood sugar 197, will place patient on insulin sliding scale diabetic diet and glipizide. History of coronary artery disease EKG showed no acute ischemia, no chest pain, troponin 11.2, continue aspirin, amlodipine and metoprolol Hypertension Elevated blood pressures since lisinopril discontinued due to hyperkalemia will up titrate dose of Norvasc to 10 mg Paroxysmal atrial fibrillation Stable ventricular rate continue metoprolol and Eliquis Chronic back pain due to lumbar radiculopathy status post peripheral nerve stimulation on right, continue oxycodone and Tylenol for pain control Obesity low-calorie diet recommended, obesity contributing to diabetes, heart failure. Tobacco use disorder strongly advised to abstain from smoking will order nicotine gum. DVT prophylaxis on Eliquis Code status DNR DNI Quality Stroke Does the patient have a stroke diagnosis?: No VTE Prior VTE?: No VTE Risk Level:: Medical - moderate - high VTE Device Contraindication: Treatment Not Indicated VTE Drug Contraindication: N/A - Med Ordered
[2021-07-09] MEDS: Acetaminophen 325 MG TABLET 650 MG PO (14:01)
[2021-07-09] MEDS: glipiZIDE XL 2.5 MG TAB.ER.24 PO (14:02)
[2021-07-09] MEDS: oxyCODONE HCl Immed Release 5 MG TABLET PO ×2 (14:02→20:34)
[2021-07-09 15:41] LABS: Glucose, Whole Blood 502 mg/dL (60-115)
[2021-07-09] MEDS: Doxycycline Hyclate 100 MG in 0.9 % Sodium Chloride 250 ML IV (16:08)
[2021-07-09] MEDS: Insulin Glargine,Hum.rec.anlog 100 UNIT/ML 10 ML VIAL 10 UNIT SUBCUT (17:50)
[2021-07-09 20:01] LABS: Glucose, Whole Blood 367 mg/dL (60-115)
[2021-07-10] MEDS: 0.9 % Sodium Chloride Flush 3 ML SYRINGE IVFLUSH ×2 (01:09→08:37)
[2021-07-10] MEDS: Doxycycline Hyclate 100 MG in 0.9 % Sodium Chloride 250 ML IV (03:15)
[2021-07-10] MEDS: oxyCODONE HCl Immed Release 5 MG TABLET PO (05:29)
[2021-07-10 05:34] LABS: B Type Natriuretic Peptide 705 pg/mL (<100)
[2021-07-10 05:45] LABS: Anion Gap 14 (12-20); Blood Urea Nitrogen 26 mg/dL (9-16); Calcium 9.7 mg/dL (8.4-10.2); Carbon Dioxide 31 mmol/L (22-29); Chloride 101 mmol/L (96-108); Creatinine Clr Calc Pharmacy 66.3; Estimated Glomerular Filt Rate 59; Glucose Random 181 mg/dL (60-115); Potassium 5.2 mmol/L (3.3-5.1); Sodium 141 mmol/L (135-145)
[2021-07-10 08:00] VITALS: BP 145/104; PULSE 101; RESP 20; TEMP 36.2; O2SAT 93
[2021-07-10 08:13] LABS: Glucose, Whole Blood 144 mg/dL (60-115)
[2021-07-10 08:36] VITALS: BP 145/104; PULSE 101
[2021-07-10] MEDS: DULoxetine HCl 30 MG CAPSULE.DR PO (08:36)
[2021-07-10] MEDS: predniSONE 20 MG TABLET PO (08:36)
[2021-07-10] MEDS: Aspirin Enteric Coated 81 MG TABLET.DR PO (08:36)
[2021-07-10] MEDS: Metoprolol Tartrate 25 MG TABLET PO (08:36)
[2021-07-10] MEDS: guaiFENesin DM 200/20/10 ML 10 ML SYRUP PO ×2 (08:36→12:27)
[2021-07-10] MEDS: Docusate Sodium 100 MG CAPSULE PO (08:36)
[2021-07-10] MEDS: Apixaban 5 MG TABLET PO (08:36)
[2021-07-10 08:37] VITALS: BP 145/104; PULSE 101
[2021-07-10] MEDS: Ezetimibe 10 MG TABLET PO (08:37)
[2021-07-10] MEDS: glipiZIDE XL 5 MG TAB.ER.24 PO (08:37)
[2021-07-10] MEDS: amLODIPine Besylate 5 MG TABLET PO (08:37)
[2021-07-10] MEDS: Albuterol/Iprat 2.5/0.5MG 3 ML AMPUL.NEB INHALE ×2 (09:42→11:48)
[2021-07-10 09:43] VITALS: PULSE 97; RESP 18; O2SAT 94
[2021-07-10 11:34] VITALS: BP 134/84; PULSE 83; RESP 18; TEMP 36.4; O2SAT 94
[2021-07-10 11:50] VITALS: PULSE 83; RESP 22; O2SAT 94
[2021-07-10 12:03] LABS: Glucose, Whole Blood 191 mg/dL (60-115)
[2021-07-10] MEDS: Insulin Lispro 100 UNIT/ML 3 ML VIAL SUBCUT (12:27)
--- NOTE | 2021-07-10 12:27 | MHC.CM.PN ---
PT TO [facility] HOME TODAY WITH RESUMPTION OF [facility], NO NEW SERVICES ORDERED FAMILY TO PROVIDE TRANSPORTATION
--- NOTE | 2021-07-10 12:46 | PM.DS ---
DS: Providers Provider Date of Service: 07/10/21 Date of admission: 07/08/21 15:49 Primary care physician: Franky Green MD Consults: 07/08/21 16:12 Consult to Cardiology Routine Consulting Provider: Cortes Mejias Reason for consultation: chf DS: Diagnosis Discharge Diagnosis (1) COPD (chronic obstructive pulmonary disease): Status: Acute (2) CHF (congestive heart failure): Status: Acute (3) Atrial fibrillation: Status: Acute (4) Lumbar radicular pain: Status: Acute DS: Summary Hospital Course Hospital Course: Hospital course Chief Complaint: Shortness of breath 75-year-old gentleman past medical history significant for coronary artery disease status post stent placement 6 years ago at [facility], history of congestive heart failure, COPD on 2 L of home oxygen, history of paroxysmal atrial fibrillation on Eliquis presented to [facility] due to few days of worsening shortness of breath with dyspnea on exertion, orthopnea denies any chest pain complaining of frequent urination x1 week, admit compliance with home medications denies new medications, denies excessive fluid intake, patient was seen at [facility] 10 days ago due to chronic back pain and was referred to [facility], patient seen this a.m. by Dr. Gibson and received right-sided peripheral nerve stimulation, from there patient came to the emergency room due to worsening shortness of breath, in the emergency room a chest x-ray showed no infiltrate, no edema, BNP was 533 no prior labs available since patient cardiac and primary providers of from [place], patient was treated in the emergency room with DuoNeb, nitro paste, and IV Lasix, patient does not feel any relief in his symptoms therefore being admitted for continued treatment and evaluation of worsening shortness of breath. 75-year-old gentleman with past medical history significant for coronary artery disease status post stent placement, congestive heart failure, COPD on 2 L of oxygen actively smoking presented to [facility] with few days history of shortness of breath, orthopnea, productive cough, no fever no chills patient being admitted for further evaluation and treatment of worsening shortness of breath. Shortness of breath due to Acute COPD exacerbation and mild acute diastolic CHF, symptoms of shortness of breath significantly improved after being treated with IV steroids, updraft, antibiotics and cough medications Therefore being discharged home on by mouth steroids, recommend to continue updraft 4 times a day take cough syrup and continue home inhalers in regard to mild acute diastolic CHF patient was treated with IV Lasix 1 time dose in the emergency room subsequently noted to have worsening renal function, an echocardiogram was obtained that showed stable EF, inferior wall motion abnormality and diastolic function was indeterminate, Since patient orthopnea has resolved he has been recommended to continue home dose of Lasix, he has no chest pain, his troponins are within normal range he has been recommended to continue aspirin, amlodipine, and metoprolol. Hyperkalemia likely related to hyperglycemia and lisinopril, patient treated for new onset diabetes mellitus and lisinopril has been discontinued potassium improved to 5.2, he has been recommended to have close outpatient follow-up with PCP Acute Renal failure likely due to new onset diabetes mellitus with polyuria and due to diuresis patient renal function improved recommend to continue home dose of Lasix and to hold lisinopril. New onset diabetes mellitus patient was told to have borderline diabetes but noted to have blood sugars close to 500 hemoglobin A1c 8.5 he has been recommended diabetic diet and started on metformin 500 mg b.i.d. that can be gradually advanced patient has been strongly recommended to follow-up with primary care physician check blood sugar twice daily follow low-calorie diet Chronic hypoxic respiratory failure recommended to continue home oxygen 2 L History of coronary artery disease EKG showed no acute ischemia, no chest pain, troponin 11.2, continue aspirin, amlodipine and metoprolol, recommended complete abstinence from smoking. Hypertension noted to have few few high blood pressure reading overall BP stable continue amlodipine 5 mg and metoprolol twice daily lisinopril held due to hyperkalemia, follow-up with cardiology and primary care physician for close blood pressure monitoring Paroxysmal atrial fibrillation Stable ventricular rate continue metoprolol and Eliquis Chronic back pain due to lumbar radiculopathy status post peripheral nerve stimulation on right, continue oxycodone and Tylenol for pain control Time Spent with Patient Time attestation: Total time spent providing and/or coordinating discharge services: Discharge coordination time: Greater than 30 minutes Quality: Stroke Does the patient have a stroke diagnosis?: No Physical Exam Vital Signs: Vital Signs: Last Vital Signs Temp 97.5 F 07/10/21 11:34 Pulse 83 07/10/21 11:50 Resp 22 H 07/10/21 11:50 BP 134/84 07/10/21 11:34 Pulse Ox 94 07/10/21 11:34 Oxygen Flow Rate 2 07/08/21 11:31 BMI result Body Mass Index 38.4 General awake alert x3, no acute distress.? Neck no JVD. CVS irregular rate rhythm, Respiratory scattered bilateral rhonchi, no crackles, no use of accessory muscles Gastrointestinal abdomen soft, obese, nontender, bowel sounds audible, Extremities bilateral pitting edema unchanged/chronic per patient. Neuro nonfocal Skin no rash Psych appropriate affect DS: Data Data Completed and Pending Labs on day of discharge: Laboratory Results - last 24 hr 07/09/21 07/09/21 07/10/21 15:36 19:43 04:01 Sodium 141 Potassium 5.2 H Chloride 101 Carbon Dioxide 31 H Anion Gap 14 BUN 26 H Creatinine 1.20 Estim Creat Clear Calc 66.3 Estimated GFR 59 POC Glucose 502 H* 367 H* Random Glucose 181 H D Calcium 9.7 B-Natriuretic Peptide 07/10/21 07/10/21 07/10/21 04:01 07:57 11:33 Sodium Potassium Chloride Carbon Dioxide Anion Gap BUN Creatinine Estim Creat Clear Calc Estimated GFR POC Glucose 144 H 191 H Random Glucose Calcium B-Natriuretic Peptide 705 H Discharge Plan Discharge Patient Disposition: Home, Self-Care Discharge Diagnosis: Acute COPD exacerbation Mild acute diastolic heart failure Hyperkalemia Acute kidney injury New onset diabetes mellitus Tobacco use disorder Referrals: [facility] [Outside] - 1 Week Franky Green MD [Primary Care Provider] - 1 Week Discharge Medications: New prednisone 20 mg Tablet 20 mg PO DAILY Qty: 5 RF: 0 metformin 500 mg tablet 500 mg PO BID Qty: 60 RF: 0 doxycycline hyclate 100 mg capsule 100 mg PO BID 5 Days Qty: 10 RF: 0 Continued Eliquis 5 mg tablet 5 mg PO BID RF: 0 amlodipine 5 mg tablet 5 mg PO DAILY RF: 0 docusate sodium 100 mg capsule 100 mg PO BID RF: 0 ezetimibe 10 mg tablet 10 mg PO DAILY RF: 0 aspirin [Adult Low Dose Aspirin] 81 mg tablet,delayed release (DR/EC) 81 mg PO DAILY RF: 0 metoprolol tartrate 25 mg tablet 25 mg PO BID RF: 0 guaifenesin 200 mg tablet 200 mg PO QID RF: 0 oxycodone-acetaminophen 5-325 mg tablet 1 tab PO TID PRN (Reason: Pain) RF: 0 Spiriva Respimat 2.5 mcg/actuation mist 2 puff inhalation DAILY RF: 0 budesonide-formoterol [Symbicort] 160-4.5 mcg/actuation HFA aerosol inhaler 2 puff inhalation BID RF: 0 albuterol sulfate 2.5 mg /3 mL (0.083 %) solution for nebulization 2.5 mg inhalation Q4H PRN (Reason: Wheezing) RF: 0 duloxetine 30 mg capsule,delayed release(DR/EC) 30 mg PO DAILY RF: 0 Discontinued lisinopril 20 mg tablet 20 mg PO DAILY RF: 0 Discharge Orders: Discharge Order (Routine); Ordered 07/10/21 Ordered By: Jennifer Omer Diet: diabetic diet and low salt diet Activity on Discharge: As tolerated Stand Alone Forms: Patient Portal Discharge page Care Plan Goals: New onset diabetes mellitus follow low-calorie diet take metformin 500 mg 1 tablet twice daily, check blood sugar twice daily, stop lisinopril due to high potassium follow blood pressure closely follow-up with primary care physician for blood pressure checks take nebulizer treatment 4 times a day for next 5 days take all other medications as prescribed Health Concerns: Use Jack stocking for leg swelling, follow low-calorie diet Plan of Treatment: Follow-up with primary care physician in next 1-2 weeks. Assessment: as above
== END 2021-07-10 15:05 | disposition home or self-care (01) | DRG 190 ==
LOC: HO.ED 15:16 → HO.EDOVER 16:02 → HO.S3 18:46
PROVIDERS: Hospitalist; Admitting Provider Hospitalist; Emergency Provider Emergency Medicine; PCP Internal Medicine; Visit Provider Hospitalist
DX: J44.1 Chronic obstructive pulmonary disease with (acute) exacerbation (principal); I50.31 Acute diastolic (congestive) heart failure; N17.9 Acute kidney failure, unspecified; J96.11 Chronic respiratory failure with hypoxia; F17.210 Nicotine dependence, cigarettes, uncomplicated; Z71.6 Tobacco abuse counseling; Z99.81 Dependence on supplemental oxygen; I48.0 Paroxysmal atrial fibrillation; M54.16 Radiculopathy, lumbar region; I25.10 Atherosclerotic heart disease of native coronary artery without angina pectoris; E87.5 Hyperkalemia; E66.9 Obesity, unspecified; Z68.38 Body mass index [BMI] 38.0-38.9, adult; E11.65 Type 2 diabetes mellitus with hyperglycemia; Z20.822 Contact with and (suspected) exposure to COVID-19; Z23 Encounter for immunization; Z79.01 Long term (current) use of anticoagulants; Z79.84 Long term (current) use of oral hypoglycemic drugs; Z79.899 Other long term (current) drug therapy; Z66 Do not resuscitate
CPT/HCPCS: 36415; 71045; 80048; 80053; 82947; 83036; 83735; 83880; 84484; 85025; 87635; 90686; 93005; 93306; 94640; 94664; 96374; 99212; 99285; J1940; J2920

== ENCOUNTER 2021-08-10 06:08 | Outpatient (REF) | payer MEDICARE, SELFPAY ==
--- NOTE | ~2021-08-10 | FL_ITS ---
EXAMINATION: XR FLUOROSCOPY WITH IMAGES CLINICAL INFORMATION: Radiculopathy lumbar region. COMPARISON: Lumbar spine 05/29/2021 TECHNIQUE: Fluoroscopy performed by Lyndsey Lyles. DAP: 5.57 Gycm2 Images: 1 FINDINGS: A single image under fluoroscopy was obtained and reveals needle positioned superior to right the L4-L5 disc level or infiltrate endplate of L4 vertebra. No additional images available. FL/FL guidance in treatment room IMPRESSION: Fluoroscopy guidance was provided to referring physician for pain management.
== END 2021-08-10 06:09 | disposition home or self-care (01) ==
LOC: HO.RADIR 06:08
PROVIDERS: Visit Provider Internal Medicine
DX: M47.816 Spondylosis without myelopathy or radiculopathy, lumbar region (principal); M54.16 Radiculopathy, lumbar region; M48.061 Spinal stenosis, lumbar region without neurogenic claudication
CPT/HCPCS: 64555; C1778

== ENCOUNTER → 2021-08-16 13:39 | Outpatient (BNVA) | payer MEDICARE, SELFPAY | PROVIDERS: PCP Internal Medicine; Visit Provider Nurse Practitioner Family ==

== ENCOUNTER → 2021-08-26 10:05 | Outpatient (BNVA) | payer MEDICARE, SELFPAY | PROVIDERS: PCP Internal Medicine; Visit Provider Internal Medicine | DX: M47.26 Other spondylosis with radiculopathy, lumbar region (principal); M48.061 Spinal stenosis, lumbar region without neurogenic claudication | CPT/HCPCS: 99212 ==

== ENCOUNTER → 2021-10-14 09:50 | Outpatient (BNVA) | payer MEDICARE, SELFPAY | PROVIDERS: PCP Internal Medicine; Visit Provider Internal Medicine | DX: M47.816 Spondylosis without myelopathy or radiculopathy, lumbar region (principal); Z98.890 Other specified postprocedural states | CPT/HCPCS: 99212 ==

== ENCOUNTER → 2022-01-20 11:03 | Outpatient (BNVA) | payer MEDICARE, SELFPAY | PROVIDERS: PCP Internal Medicine; Visit Provider Internal Medicine | DX: M47.816 Spondylosis without myelopathy or radiculopathy, lumbar region (principal); M54.16 Radiculopathy, lumbar region; M48.061 Spinal stenosis, lumbar region without neurogenic claudication | CPT/HCPCS: Q3014 ==

== ENCOUNTER → 2022-04-17 13:46 | Outpatient (BNVA) | payer MEDICARE, SELFPAY | PROVIDERS: PCP Internal Medicine; Visit Provider Internal Medicine | DX: M70.61 Trochanteric bursitis, right hip (principal); M70.62 Trochanteric bursitis, left hip | CPT/HCPCS: 20610 ==